=== PATIENT | female | born 1970 | race African-American/Black ===

== ENCOUNTER 2021-06-29 09:02 | Emergency (ER) | payer SELFPAY ==
[2021-06-29] MEDS ORDERED: Metoclopramide HCl 10 MG/2 ML VIAL ONE (09:47)
[2021-06-29] MEDS ORDERED: Ketorolac Tromethamine 30 MG/ML VIAL ONE (09:47)
[2021-06-29] MEDS ORDERED: Magnesium 2 GM/50 ML BAG (IN WATER) ONE (09:47)
[2021-06-29] MEDS ORDERED: diphenhydrAMINE 50 MG/ML VIAL ONE (09:47)
== END 2021-06-29 11:00 | disposition home or self-care (01) ==
LOC: MADERS 09:02
DX: G43.009 Migraine without aura, not intractable, without status migrainosus (principal)
CPT/HCPCS: 96365; 96375; J1200; J1885; J2765; J3475

== ENCOUNTER 2023-05-29 18:31 | Emergency (ER) | payer BC ==
[2023-05-29 19:36] LABS: ALT (SGPT) 13 U/L (8-55); AST (SGOT) 17 U/L (5-34); Albumin 4.1 g/dL (3.5-5.0); Alkaline Phosphatase 79 U/L (40-110); Anion Gap 13 mmol/L (10-20); BUN (Urea Nitrogen) 14 mg/dL (7.0-18.7); Bilirubin, Total 0.3 mg/dL (0.2-1.2); Calc. Creatinine Clearance 0 mL/min (70-130); Calcium 8.9 mg/dL (7.8-10.44); Carbon Dioxide 24 mmol/L (22-29); Chloride 108 mmol/L (98-107); Estimated GFR 106; Globulin 3.7 g/dL (2.4-3.5); Glucose 90 mg/dL (70-105); Magnesium 2.2 mg/dL (1.6-2.6); Potassium 3.6 mmol/L (3.5-5.1); Protein, Total 7.8 g/dL (6.0-8.3); Sodium 141 mmol/L (136-145)
[2023-05-29 19:37] LABS: #Basophils 0.1 thou/uL (0.0-0.2); #Eosinphils 0.1 thou/uL (0.0-0.7); #Monocytes 0.7 thou/uL (0.11-0.59); %Eosinophils 1.3 % (0.0-10.0); %Lymphocytes 18.4 % (21.0-51.0); %Monocytes 5.9 % (0.0-10.0); %Neutrophils 73.3 % (42.0-75.0); Hematocrit 41.6 % (36.0-47.0); Hemoglobin 13.5 g/dL (12.0-16.0); Mean Corpuscular HGB CONC 32.4 g/dL (32.0-36.0); Mean Corpuscular Hemoglobin 30.6 pg (27.0-31.0); Mean Corpuscular Volume 94.4 fl (78.0-98.0); Mean Platelet Volume 9.6 fL (7.4-10.4); Platelet Count 257 10x3/uL (130-400); RBC Distribution Width 12.7 % (11.5-14.5); Red Blood Cell (RBC) Count 4.41 mill/uL (4.20-5.40); White Blood Cell (WBC) Count 10.9 10x3/uL (4.8-10.8)
== END 2023-05-29 19:59 | disposition home or self-care (01) ==
LOC: MADERS 18:31
DX: U07.1 COVID-19 (principal); R00.2 Palpitations; R91.1 Solitary pulmonary nodule
CPT/HCPCS: 36415; 71046; 80053; 83735; 84443; 85025; 93005

== ENCOUNTER 2023-09-13 17:59 | Emergency (ER) | payer BC, SELFPAY ==
[2023-09-13] MEDS ORDERED: Dexamethasone 10 MG/ML VIAL ONE (18:38)
[2023-09-13] MEDS ORDERED: Lidocaine 4% Patch ONE (18:38)
== END 2023-09-13 18:50 | disposition home or self-care (01) ==
LOC: MADERS 17:59
DX: M54.42 Lumbago with sciatica, left side (principal)
CPT/HCPCS: 96372; 99283; J1100

== ENCOUNTER 2024-01-15 17:31 | Emergency (ER) | payer SELFPAY ==
[2024-01-15] MEDS ORDERED: Ketorolac Tromethamine 30 MG (1 mL) VIAL ONE (17:51)
== END 2024-01-15 18:04 | disposition home or self-care (01) ==
LOC: MADERS 17:31
DX: G89.29 Other chronic pain (principal); M54.50 Low back pain, unspecified
CPT/HCPCS: 96372; 99283; J1885